=== PATIENT | female | born 1985 | race Caucasian/White ===

== ENCOUNTER 2024-06-03 18:42 | Emergency (ER) | payer OTHER, SELFPAY ==
[2024-06-03 19:03] VITALS: BP 125/87
[2024-06-03 19:23] LABS: % Basophils 0.1 % (0-2); % Immature Granulocytes 0.6 % (0-0.5); % Lymphocytes 10.6 % (20.5-51.1); % Neutrophils 87.7 % (42.2-75.2); Absolute Immature Granulocytes 0.1 10^3/uL (0-0.05); Absolute Lymphocytes 0.9 10^3/uL (1.2-3.4); Absolute Monocytes 0.1 10^3/uL (0.1-0.6); Absolute Neutrophils 7.6 10^3/uL (1.4-6.5); Hematocrit 35.5 % (37.0-47.0); Hemoglobin 12.1 g/dL (12.0-16.0); Mean Corp Hgb Conc. 34.1 g/dL (33.0-37.0); Mean Corpuscular Hgb 28.9 pg (27.0-31.0); Mean Corpuscular Volume 84.9 fL (81.0-99.0); Mean Platelet Volume 9.9 fL (7.4-10.4); Nucleated Red Blood Cells % 0 %; Platelet Count 294 10^3/uL (130-400); Red Blood Cell Count 4.18 10^6/uL (4.20-5.40); Red Cell Dist. Width 12.8 % (11.5-14.5); White Blood Cell Count 8.6 10^3/uL (4.8-10.8)
[2024-06-03 19:37] LABS: HCG, Serum Qualitative Screen Negative
[2024-06-03 19:41] LABS: ALT (SGPT) 17 U/L (0-35); AST (SGOT) 19 U/L (14-36); Albumin 4.3 g/dl (3.5-5.0); Alkaline Phosphatase 68 U/L (38-126); Blood Urea Nitrogen 12 mg/dl (7-17); Calcium 9.7 mg/dl (8.4-10.2); Carbon Dioxide 24 mmol/L (22-30); Chloride 108 mmol/L (98-107); Glucose 177 mg/dl (70-99); Potassium 4.2 mmol/L (3.5-5.1); Sodium 141 mmol/L (135-145); Total Bilirubin 0.4 mg/dl (0.2-1.3); Total Protein 7.3 g/dl (6.3-8.2); eGFR > 60.00
[2024-06-03 20:05] VITALS: BMI 29.5
[2024-06-03] MEDS: NSS 1000 IV (20:06)
--- NOTE | 2024-06-03 20:12 | ED.GENMED ---
History of Present Illness
General
Chief Complaint: Headache
Source: patient
Exam Limitations: none
Time Seen by Provider: 06/03/24 19:43
Nursing documentation reviewed up to this point in time: agreed with
History of Present Illness
History of Present Illness:
38-year-old female history of migraines, on a injection medication, status post stenting what sounds like an aneurysm or AVM right posterior behind her ear January 2024 [facility] has had a migraine, neurologist started her on
steroids, with minimal relief, no fevers, mild nausea no vomiting noticed some blood coming from her right ear today, necessitating ER visit, she believes she could have pressure but she is not sure has some pain behind the right ear,
Past History
Past History
ED Past Medical History: Other (Migraines AVM or aneurysm)
ED Past Surgical History: Brain
Social History
Tobacco: Non-smoker
Alcohol: None
Drug: None
Living: with family
Employment: Employed
Review of Systems
Review of Systems
All Other Systems: Not applicable
Constitutional: Denies fever or fatigue
EENT: Reports other (Blood from the right ear)
Neurological: Reports headache; Denies dizzy or numbness
Phy Exam
Physical Exam
Physical Exam:
Physical Exam
General: Nontoxic female normal mental status A-fib
Neck: No photophobia acute to subacute appearing scratch 4-5 o'clock in the tympanic membrane on the right TM membrane appears intact
Heart: s1/s2 regular rate and rhythm, no murmur. equal radial pulses.
Lungs: no acute respiratory distress. clear bilaterally
Abdomen: Nontender
Neuro: alert and oriented. no focal neurological deficits
Skin: no rash
Psychiatric: well kept. interactive and cooperative
Extremities: no edema.
Course
Orders/Labs/Results
Orders:
Orders
06/03/24 19:07
Test Result ONCE
06/03/24 19:11
Complete Blood Count/With Diff Urgent
Comprehensive Metabolic Panel Urgent
HCG, Serum Qualitative Screen Urgent
06/03/24 19:56
CT Head & Neck Angio W/wo IV Urgent
Comment:
Reason For Exam: Headache aneurysm coiled blood from the right ear
06/03/24 19:57
0.9% Sodium Chloride 1000 ml [Nss] 1,000 ml IV BOLUS
06/03/24 20:00
Promethazine [Phenergan] 25 mg 0.9% Sodium Chloride 50 ml [Nss] 50 ml IV NOW
Abnormal Lab Results
06/03/24
19:11
RBC 4.18 L 10^6/uL
(4.20-5.40)
Hct 35.5 L %
(37.0-47.0)
Abs Immat Gran (auto) 0.1 H 10^3/uL
(0-0.05)
Absolute Neuts (auto) 7.6 H 10^3/uL
(1.4-6.5)
Absolute Lymphs (auto) 0.9 L 10^3/uL
(1.2-3.4)
Immature Gran % 0.6 H %
(0-0.5)
Neutrophils % 87.7 H %
(42.2-75.2)
Lymphocytes % 10.6 L %
(20.5-51.1)
Monocytes % 1.0 L %
(1.7-9.3)
Chloride 108 H mmol/L
(98-107)
Glucose 177 H mg/dl
(70-99)
06/03/24 19:11
06/03/24 19:11
Vital Signs
Initial and Last Documented VS:
Initial Vital Signs
Temp Pulse Resp BP Pulse Ox
98.2 F 72 20 125/87 98
06/03/24 19:03 06/03/24 19:03 06/03/24 19:03 06/03/24 19:03 06/03/24 19:03
Last Documented Vital Signs
Temp Pulse Resp BP Pulse Ox
98.2 F 66 16 114/62 98
06/03/24 19:03 06/03/24 21:00 06/03/24 21:00 06/03/24 21:00 06/03/24 21:00
MDM/Problems Addressed
Differential Diagnosis Includes:
Intracerebral hemorrhage, issue with her stent, localized trauma or infections in his appendix canal or membrane migraine
MDM/Problems Addressed:
Headache, bleeding from the ear,
Chronic conditions affecting care: Neurological disorder
Acute Exacerbation and/or Progression of Chronic Illness: Neurological disorder
*Radiology
Radiology exam reviewed: radiology read reviewed
*Pulse Oximetry
Patient hypoxic: no
*Critical Care Note
Total Time (30-74mins, 75-104mins- exclusive of procedures): Not Applicable
Update Note
Update Note:
11 PM update patient feeling better resting comfortably I did receive a call from radiology earlier about her CAT scan report
Please the patient safely be discharged with antiemetics analgesics, will give her Corticosporin otic for her ear have her follow-up with her neurologist as an outpatient
ED Attending Note
-
Portions of this chart may have been created with voice recognition software.� Occasional wrong word or��sound alike� substitutions may have occurred due to the inherent limitations of voice recognition software.
Discharge Plan
Departure
Patient Disposition: Home (Routine Discharge)
Date of Disposition: 06/03/24
Time of Disposition: 22:55
Patient with high blood pressure during this ER visit?: No
Condition: Good
Discharge Problem:
Headache, Otitis externa
Instructions: Migraines (DC)
Prescriptions:
New
promethazine 25 mg tablet
25 mg PO Q6H PRN (Reason: Headache) Qty: 20 0RF
Referrals:
Ricky Farooq CRNP [Family Provider] -
Interventions
Interventions:
*Risk Screen - Suicide Last Done: 06/03/24 20:05
*General Assessment Last Done: 06/03/24 19:03
*Neglect/Abuse Screening Last Done: 06/03/24 20:05
*ED- Fall Risk Assessment Last Done: 06/03/24 20:05
*ED COVID-19 Vaccine History Last Done: 06/03/24 20:05
ED- Neurological Assessment Last Done: 06/03/24 20:22
Discharge Date and Time
Print Language: BANGLADESHI
[2024-06-03] MEDS: PHENERGAN 51 MG IV (20:13)
[2024-06-03 21:00] VITALS: BP 114/62
--- NOTE | 2024-06-03 21:00 | EDRN ---
Patient reports feeling a little better, waiting on CT scan at this time.
[2024-06-03] MEDS: CORTISPORIN OTIC SUSPENSION 1 DROP OTIC (23:20)
== END 2024-06-03 23:28 | disposition home or self-care (01) ==
LOC: EMR 18:42
PROVIDERS: EMERGENCY PHYSICIAN Emergency Medicine; FAMILY PHYSICIAN Nurse Practitioner Family
DX: R51.9 Headache, unspecified (principal); H60.91 Unspecified otitis externa, right ear; R29.90 Unspecified symptoms and signs involving the nervous system
CPT/HCPCS: 96374; 96361; 99284; 70496; 70498; 80053; 84703; 85025; Q9967